=== PATIENT | female | born 1995 | race Caucasian/White ===

== ENCOUNTER 2019-01-03 17:24 | Inpatient (IN) | payer BC ==
[~2019-01-03] VITALS: Ht 154.9 cm; Wt 74.7 kg
[~2019-01-03 17:24] MED LIST: Ibuprofen PO
[2019-01-03] MEDS ORDERED: AMPICILLIN 2 GM/NS (PMX) 100 ML IV ONE (18:30)
[2019-01-03] MEDS ORDERED: METHYLERGONOVINE 0.2 MG INJ IM PRN ×2 (18:30→23:30)
[2019-01-03] MEDS ORDERED: CARBOPROST 250 MCG INJ IM PRN ×2 (18:30→23:30)
[2019-01-03] MEDS ORDERED: OXYTOCIN 30 UNITS/LR 500 ML IV SCH ×2 (18:30)
[2019-01-03] MEDS ORDERED: OXYTOCIN 30 UNITS/LR 500 ML IV PRN ×2 (18:30→23:30)
[2019-01-03] MEDS ORDERED: LIDOCAINE 1% (MPF) 30 ML INJ INJ PRN (18:30)
[2019-01-03] MEDS ORDERED: BUTORPHANOL 2 MG INJ IV PRN ×2 (18:30)
[2019-01-03] MEDS ORDERED: MISOPROSTOL 200 MCG TAB PR PRN ×2 (18:30→23:30)
[2019-01-03] MEDS: LACTATED RINGER'S 1,000 ML IV SCH ×2 (18:38→21:13)
[2019-01-03 19:00] VITALS: Ht 154.9 cm; Wt 74.7 kg
[2019-01-03] MEDS ORDERED: AMPICILLIN 2 GM/NS (PMX) 100 ML IVPB ONE (19:30)
--- NOTE | 2019-01-03 19:39 | PREAC ---
Date/Time of Note Date/Time of Note DATE: 01/03/19 TIME: 19:38 Anesthesia Eval and Record Evaluation Time Pre-Procedure Interview DATE: 01/03/19 TIME: 19:38 Age 23 Sex female NPO: 8 hrs Preoperative diagnosis in labor Planned procedure Labor epidural Past Medical History Past Medical History: Includes GI: Obesity Surgery & Anesthesia Issues No known issue Meds Anticoagulation: No Beta Marek within 24 hr: No Reason Beta Marek not given: Pt. not on B-Marek Active Scripts [Ibuprofen] 600 MG TAB No Conflict Check, 600 MG PO Q6, #20 TAB 0 Refills Prov:JORGE A SOUZA MD 08/15/15 Current Medications Lactated Ringer's 1,000 ml @ 125 mls/hr Q8H IV Last administered on 01/03/19at 18:38; Admin Dose 125 MLS/HR; Start 01/03/19 at 18:15 Butorphanol Tartrate (Stadol) 1 mg Q2H PRN IV .PAIN SCALE 1-5; Start 01/03/19 at 18:30 Butorphanol Tartrate (Stadol) 2 mg Q2H PRN IV .PAIN SCALE 6-10; Start 01/03/19 at 18:30 Lidocaine (Xylocaine 1% (Mpf)) 30 ml ONCE PRN INJ .EPISIOTOMY; Start 01/03/19 at 18:30 Oxytocin/Lactated Ringer's 500 ml @ 500 mls/hr ONCE POST IV ; Start 01/03/19 at 18:30 Oxytocin/Lactated Ringer's 500 ml @ 125 mls/hr POST IV ; Start 01/03/19 at 18:30 Oxytocin/Lactated Ringer's 500 ml @ 0 mls/hr ONCE PRN IV .VAGINAL BLEEDING; Start 01/03/19 at 18:30 Methylergonovine Maleate (Methergine) 0.2 mg ONCE PRN IM .VAGINAL BLEEDING; Start 01/03/19 at 18:30 Carboprost Tromethamine (Hemabate) 250 mcg ONCE PRN IM .VAGINAL BLEEDING; Start 01/03/19 at 18:30 Misoprostol (Cytotec) 1,000 mcg ONCE PRN VA .VAGINAL BLEEDING; Start 01/03/19 at 18:30 Ampicillin 50 ml @ 100 mls/hr Q4H IV ; Start 01/03/19 at 22:30 Meds reviewed: Yes Allergies Coded Allergies: No Known Allergy (Unverified , 08/14/15) Allergies Reviewed: Yes Labs/Studies Labs Reviewed: Reviewed by anesthesiologist Result Diagram: 01/03/19 1805 Laboratory Tests 01/03/19 18:05 test: Positive Pre-procedure Exam Airway: Adequate mouth opening Mallampati: Mallampati II Teeth: Normal Lung: Normal Heart: Normal ASA Physical Status ASA physical status: 3 Emergency: None Planned Anesthetic Neuraxial: Epidural Pre-operative Attestations Prior to commencing anesthesia and surgery, the patient was re-evaluated, there was verification of: *The patient's identity *The results of appropriate recent lab work and preoperative vital signs *The above evaluation not changing prior to induction *Anesthetic plan, risk benefits, alternative and complications discussed with patient/family; questions answered; patient/family understands, accepts and wishes to proceed. ISAAK LAMB MD Jan 03, 2019 19:39
[2019-01-03] MEDS ORDERED: FENTAnyl 2MCG/ML-ROPIV 0.2% 100 ML ONE (19:41)
[2019-01-03] MEDS ORDERED: DIPHENHYDRAMINE 50 MG INJ IV PRN (20:30)
[2019-01-03] MEDS ORDERED: EPHEDrine 25 MG/5 ML SYG IV PRN (20:30)
[2019-01-03] MEDS ORDERED: FENTAnyl 2MCG/ML-ROPIV 0.2% 100 ML BAG EPI SCH (20:30)
[2019-01-03] MEDS ORDERED: NALOXONE (0.4 MG/ML) INJ IV PRN (20:30)
[2019-01-03] MEDS ORDERED: ONDANSETRON 4 MG INJ IV PRN (20:30)
[2019-01-03] MEDS ORDERED: AMPICILLIN 1 GM/NS (PMX) 50 ML IVPB SCH (21:00)
[2019-01-03] MEDS ORDERED: AMPICILLIN 1 GM/NS (PMX) 50 ML IV SCH (22:30)
[2019-01-03 23:25] VITALS: BP 125/62; PULSE 76; RESP 17
[2019-01-03] MEDS ORDERED: BENZOCAINE 20% 56 ML SPRAY TOP PRN (23:30)
[2019-01-03] MEDS ORDERED: ZOLPIDEM 5 MG TAB PO PRN (23:30)
[2019-01-03] MEDS ORDERED: WITCH HAZEL/GLYCERIN PAD PR PRN (23:30)
[2019-01-03] MEDS ORDERED: LANOLIN HPA 1 PKT TOP PRN (23:30)
[2019-01-03] MEDS ORDERED: OXYCODONE/ASPIRIN (4.88/325) TAB PO PRN ×2 (23:30)
[2019-01-04] MEDS: IBUPROFEN 600 MG TAB PO SCH ×4 (00:11→17:23)
[2019-01-04 04:00] VITALS: BP 109/51; PULSE 66; RESP 18
[2019-01-04 08:00] VITALS: BP 114/70; PULSE 63; RESP 18
[2019-01-04] MEDS: SENNA/DOCUSATE NA (8.6MG/50MG) TAB PO SCH ×2 (08:33→21:00)
--- NOTE | 2019-01-04 08:38 | PAC ---
Date/Time of Note Date/Time of Note DATE: 01/04/19 TIME: 08:38 Post-Anesthesia Notes Post-Anesthesia Note Last documented vital signs Vital Signs Date Temp Pulse Resp B/P (MAP) Pulse Ox O2 O2 Flow FiO2 Time Delivery Rate 01/04/19 98.3 66 18 109/51 Room Air 04:00 (70) Activity: WNL Respiratory function: WNL Cardiovascular function: WNL Mental status: Baseline Pain reasonably controlled: Yes Hydration appropriate: Yes Nausea/Vomiting absent: Yes ISAAK LAMB MD Jan 04, 2019 08:38
[2019-01-04 16:39] VITALS: BP 109/57; PULSE 79; RESP 18
[2019-01-04 19:35] VITALS: BP 114/65; PULSE 72; RESP 20
--- NOTE | 2019-01-04 23:35 | PN ---
Date/Time of Note Date/Time of Note DATE: 01/04/19 TIME: 23:32 OB Subjective Subjective Subjective late entry for service rendered early am no specific complaints no b.m yet OB Objective Objective Objective VSS afebrile fundus firm lochia min calf neg for tenderness OB Assessment/Plan Other Assessment: Stable s/p #1 Other plan: discharge home in am CHLOÉ CHATMAN MD Jan 04, 2019 23:35
--- NOTE | 2019-01-04 23:45 | LDN ---
Date/Time of Note Date/Time of Note DATE: 01/04/19 TIME: 23:43 Delivery Summary of normal male Weeks of Gestation 39w6d Placenta Delivered: Spontaneously, Intact & Complete Meconium: none Episiotomy: No Perineal laceration: 1 Laceration repair: 000ch gut with SH Anesthesia type: Epidural Estimated blood loss: 150 Sponge & Needle done & correct: Yes All needle counts correct: Yes Any foreign bodies felt in the: No Delivery Information Sex Sex: male Apgars 1 Minute: 9 5 Minute: 9 Suctioning Nose & mouth suctioned at inna: Yes Delee suction performed: Yes Umbilical Cord Umbilical cord with: 3 Vessels Cord presentations: no nuchal cord Cord Blood was obtained: Yes Mother & Baby Disposition Disposition Mom & Baby to Maternity; Good: Yes Mom transferred to: Other Baby to NICU: No () CHLOÉ CHATMAN MD Jan 04, 2019 23:45
[2019-01-05] MEDS: SENNA/DOCUSATE NA (8.6MG/50MG) TAB PO SCH ×3 (00:11→21:39)
[2019-01-05] MEDS: IBUPROFEN 600 MG TAB PO SCH ×4 (00:11→17:26)
--- NOTE | 2019-01-05 01:00 | HP ---
Date/Time of Note Date/Time of Note DATE: 01/05/19 TIME: 00:40 OB - History Hx of Present Free Text/Dictation late entry for service rendered on 01/03/19 23 y.o presents at triage with c/o DFM and vaginal spotting and perineal pain initial VE 7/100/-1 CAT I tracing no record is available GBS unknown admitted for expectant management. Chief Complaint: DFM and vaginal spotting ,perineal pain Estimated Due Date: Jan 04, 2019 : 2 Para: 1 Spontaneous : 0 Therapeutic : 0 Care: Other Ultrasounds: Other Obstetrical Complications: None Medical Complications: None Past Family/Social History * Past Medical, Surgical, Family and Obstetric Histories reviewed from chart. Blood Type: O+ Rubella: immune RPR/VDRL: Negative GBS Status: Unknown HBsAG: Negative OB Admission Exam Vital Signs Vital Signs Vital Signs Date Temp Pulse Resp B/P (MAP) Pulse Ox O2 O2 Flow FiO2 Time Delivery Rate 01/04/19 99.0 72 20 114/65 Room Air 19:35 (81) Physical Exam HEENT: WNL Effacement: 100% Station: -1 Membranes: Intact Amniotic Fluid: Unevaluable ( ) Heart Rate: 120's Accelerations: Accelerations Present Decelerations: No Decelerations Varibility: Moderate Contractions on Admission: < 5 Minutes Apart Intensity: Moderate Last 72 hours Lab Results CBC & BMP 01/03/19 18:05 01/04/19 07:08 OB Assessment/Plan Reason for admission: active labor Other Assessment: IUP 39w6d Plan: Expectant Management CHLOÉ CHATMAN MD Jan 05, 2019 00:56
[2019-01-05 04:00] VITALS: BP 102/65; PULSE 67; RESP 18
[2019-01-05 08:15] VITALS: BP 103/61; PULSE 62; RESP 18
[2019-01-05] MEDS ORDERED: DIPHTH/TET/ACEL PERTUSS (ADULT) 0.5 ML VIAL IM* ONE (09:00)
--- NOTE | 2019-01-05 10:27 | PD.PPDC ---
MICROFILM CLERK Discharge Instruction Diagnosis [id number] Final Diagnosis: Pqhvf8u s/p Condition [id number] Patient Condition: Zqakn8n Stable Diet Hnzst4Fm Diet: Zfctx7d Resume Regular Diet Activity/Restrictions [id number] Activity: Xuexx6o May Shower Heknd7Mm Restrictions: Duant2l No Lifting Minimize Stair-climbing No Sexual Activity Nothing in the Vagina No [place] No Tampons, douche Follow-up Follow-up with Physician: 2, Day/Days Provider Information: patient wants to have baby circumcised d Return to clinic for [id number] [employer]ER Instructions: Ouocq8x Fever greater than 101 Chills Worsening abdominal pain Excessive Vaginal Bleeding More than 2 pads per hour Unable to tolerate diet Hielw9Gv OB Instructions: Gdxdy1u Breast Tenderness Depression Blurried Vision Headache CHLOÉ CHATMAN MD Jan 05, 2019 10:27
--- NOTE | 2019-01-05 10:31 | DS ---
Date/Time of Note Date/Time of Note DATE: 01/05/19 TIME: 10:29 Obstetrical Discharge Record Final Diagnosis Final Diagnosis: Term delivered Vaginal Delivery Obstetrical Delivery: Spontaneous, Laceration, Repaired Complications Augmentation: No Induction: No Rupture of Membranes: No Condition on Discharge Physical Assessment Last Vitals: vss afebrile Voiding: Yes Bowel Movement: No Breast: Soft, non-tender Fundus: Firm Calf Tenderness: No Patient Condition: Stable CHLOÉ CHATMAN MD Jan 05, 2019 10:31
[2019-01-05 15:30] VITALS: BP 106/55; PULSE 77; RESP 16
[2019-01-05 20:00] VITALS: BP 118/74; PULSE 70; RESP 18
--- NOTE | 2019-01-07 00:22 | DELSUM ---
Delivery Summary A-C Datetime Report Generated by CPN: 01/06/2019 23:38 DELIVERY PERSONNEL Motorized [employer] Commanding Officer: Zeke, Vicky MATERNAL INFORMATION Delivery Anesthesia: Epidural Medications in Delivery: LR W/30 UNITS PITOCIN Delivery QBL (ml): 150 Placenta Cultured: No Maternal Complications: None LABOR SUMMARY EDC: 01/04/2019 00:00 No. Babies in Womb: 1 Attempted: No Labor Anesthesia: Epidural LABOR INFORMATION Onset of Labor: 01/03/2019 18:00 Complete Dilatation: 01/03/2019 21:17 Group B Beta Strep: Done, Result Unknown Antibiotics # of Doses: 1 Antibiotics Time of Last Dose: 01/03/2019 20:00 Steroids Given: None Reason Steroids Not Administered: Not Applicable MEMBRANES Membranes Rupture Method: Spontaneous Rupture of Membranes: 01/03/2019 21:26 Length of Rupture (hr): 0.18 Amniotic Fluid Color: Clear Amniotic Fluid Amount: Moderate Amniotic Fluid Odor: None STAGES OF LABOR Stage 1 hr: 3 Stage 1 min: 17 Stage 2 hr: 0 Stage 2 min: 20 Stage 3 hr: 0 Stage 3 min: 6 Total Time in Labor hr: 3 Total Time in Labor min: 43 VAGINAL DELIVERY Episiotomy: None Laceration Extension: First Degree Laceration Type: Perineal Laceration Repair: Yes Initial Vag Sponge Count: 10 Final Vag Sponge Count: 10 Initial Vag Sharps Count: 1 Final Vag Sharps Count: 3 Sponge Count Correct: Yes; Vaginal Sweep Performed BABY A INFORMATION Delivery Date/Time: 01/03/2019 21:37 Method of Delivery: Vaginal Born in Route : No : N/A Forceps: N/A Vacuum Extraction: N/A Shoulder Dystocia : No SHOULDER DYSTOCIA BABY A Infant Delivery Date/Time: 01/03/2019 21:37 PRESENTATION/POSITION BABY A Presentation: Cephalic Cephalic Presentation: Vertex Vertex Position: Right Occipital Posterior Breech Presentation: N/A PLACENTA INFORMATION BABY A Placenta Delivery Time : 01/03/2019 21:43 Placenta Method of Delivery: Spontaneous Placenta Status: Delivered SCORES BABY A Heart Rate 1 min: >100 bpm Resp Effort 1 min: Good Cry Reflex Irritability 1 min: Cough/Sneeze/Pulls Away Muscle Tone 1 min: Active Motion Color 1 min: Body Black[place], Extremit Blue Resuscitation Effort 1 min: Tactile Stimulation SCORE 1 MIN: 9 Heart Rate 5 min: >100 bpm Resp Effort 5 min: Good Cry Reflex Irritability 5 min: Cough/Sneeze/Pulls Away Muscle Tone 5 min: Active Motion Color 5 min: Body Black[place], Extremit Blue Resuscitation Effort 5 min: Tactile Stimulation SCORE 5 MIN: 9 INFORMATION BABY A Gestational Age at Delivery: 39.6 Gestational Status: Full Term- 39- 40.6 Weeks Outcome : Liveborn, with signs of life Infant Condition : Stable Sex: Male IDENTIFICATION/MEDS BABY A ID Band Number: [id number] ID Band Location: Right Leg; Left Arm Sensor Applied: Yes Sensor Number: [id number] Sensor Location : Cord Clamp Vitamin K Given : Not Given Erythromycin Given: Not Given WEIGHT/LENGTH BABY A Birthweight (gm): 3165 Infant Weight (lb): 7 Weight (oz): 0 Length (in): 18.75 Infant Length (cm): 47.63 CORD INFORMATION BABY A No. Cord Vessels: 3 Cord Blood Taken: Yes Infant Suction: Mouth; Nose ASSESSMENT BABY A Complications: None Physical Findings at Delivery: Within Normal Limits Infant Respirations: Appears Normal Copy Room Technician/ALS Called : Yes Care By: RN Transferred To: [facility] with Mother
== END 2019-01-05 22:05 | disposition home or self-care (01) | DRG 807 ==
LOC: OBT 17:24 → L-D 17:24 → OBT 18:10 → PP1 23:21
PROVIDERS: ADMIT Obstetrics & Gynecology; ATTEND Obstetrics & Gynecology
PROC: 10E0XZZ Delivery of Products of Conception, External Approach (ICD-10-PCS; principal; 2019-01-04)
PROC: 0HQ9XZZ Repair Perineum Skin, External Approach (ICD-10-PCS; 2019-01-04)
DX: O70.0 First degree perineal laceration during delivery (principal); Z37.0 Single live birth; O99.214 Obesity complicating childbirth; Z3A.39 39 weeks gestation of pregnancy
CPT/HCPCS: 62322; 85025; 85610; 85730; 86592; 86850; 86900; 86901; 87340; G0463; J0290; J2590; J3010; J7120